=== PATIENT | female | born 1990 | race African-American/Black ===

== ENCOUNTER 2021-05-30 11:15 | Emergency (ER) | payer OTHER ==
[2021-05-30 11:31] VITALS: BP 125/85; PULSE 85; TEMP 97.9; BMI 44.4
[2021-05-30] MEDS ORDERED: IBUPROFEN 600 MG TABLET (FP) PO ONE ×2 (11:49→12:19)
== END 2021-05-30 12:46 | disposition home or self-care (01) ==
LOC: JER 11:15 → JERFT 11:15 → JER 12:46
DX: S62.644A Nondisplaced fracture of proximal phalanx of right ring finger, initial encounter for closed fracture (principal)
CPT/HCPCS: 73130-TC-RT-FY; 99284-25